=== PATIENT | female | born 1960 | race Caucasian/White ===

== ENCOUNTER 2017-05-14 11:59 | Observation (INO) ==
[2017-05-14] MEDS ORDERED: Nitroglycerin 0.4 MG TAB.SUBL SL PRN (12:35)
--- NOTE | 2017-05-14 12:38 | Emergency Department Note ---
Disposition Clinical Impression: Chest pain Qualifiers: Chest pain type: unspecified Qualified Code(s): R07.9 - Chest pain, unspecified Disposition: Admitted As Inpatient Condition: Undetermined Referrals: NONE,PCP [Primary Care Provider] - Forms: ED Satisfaction Letter Time of Disposition: 14:34 Chest Pain HPI - General Chief Complaint: ED Chest Pain Stated Complaint: chest pain Time Seen by Provider: 05/14/17 12:07 Source: patient Mode of arrival: ambulatory Limitations: no limitations Vital Signs Reviewed: Yes Nursing Notes Reviewed: Yes - History of Present Illness HPI Narrative: 57-year-old female with history of indigestion arrives to [facility] emergency department complaining of epigastric pain radiating into her neck on the left side as well as bilateral upper extremities. The patient has associated nausea. The patient states that she is indigestion but states over the course of the past 24 hours she has felt as though she cannot take a deep breath due to this discomfort in her epigastric radiating into her chest. The patient states this feels different than previous indigestion. The patient states she had a previous cardiac stress test over 10 years ago and was normal. The patient does admit to family history of cardiac disease but denies any history of HI. The patient denies any history of diabetes, hyperlipidemia, hypertension. She denies any smoking. She denies any other complaints at this time. She is not diaphoretic on appearance. Physical exam is unremarkable. Pt complaint: chest pain Onset (ago): day(s) (1) Duration: constant Onset: during rest Pain Location: substernal, epigastric Severity: mild Severity scale (1-10): 2 Quality: aching Pain Radiation: RUE, LUE, neck Improves with: nothing Worsens with: nothing Associated symptoms: Reports: nausea Treatments prior to arrival chest pain: none - Related Data On Oral Contraceptives: No Home Medications Medication Instructions Recorded Confirmed Escitalopram [Lexapro] 20 mg PO DAILY 05/14/17 05/14/17 Allergies Allergy/AdvReac Type Severity Reaction Status Date / Time No Known Allergies Allergy Verified 05/14/17 12:01 All systems ED: reviewed and negative except as stated. Constitutional: Denies: fever, chills, weakness ENT ED: Denies: congestion Cardiovascular: Reports: chest pain. Denies: palpitations, dyspnea on exertion , edema, syncope Respiratory: Denies: cough, dyspnea, wheezes, hemoptysis Gastrointestinal: Reports: nausea. Denies: abdominal pain, vomiting, constipation Genitourinary: Denies: urgency, dysuria Musculoskeletal: Reports: neck pain. Denies: back pain, arthralgia, myalgia Neurological: Denies: headache, weakness, numbness Chest Pain PMH - Past Medical History Medical history: Reports: no medical history Psychiatric history: Reports: anxiety, depression TELECOM SPECIALIST history: Reports: no TELECOM SPECIALIST history - Social History Smoking Status: Never smoker Alcohol use: Reports: rarely Drug use: Reports: none Physical Exam - General Limitations: no limitations General appearance: alert, in no apparent distress - Head Head exam: atraumatic, normocephalic, normal inspection - Eye Eye exam: Present: normal appearance, PERRL, EOMI - ENT ENT exam: normal exam, normal oropharynx, mucous membranes moist - Neck Neck exam: Present: normal inspection, full ROM, trachea midline - Chest Chest inspection: Present: normal inspection, symmetric chest wall rise - Respiratory Respiratory exam: Present: normal lung sounds bilaterally - Cardiovascular Cardiovascular exam: Present: normal rhythm, bradycardia, normal heart sounds - Abdominal Exam Abdominal exam: Present: soft, Non-Tender. Absent: tenderness, distention, guarding, rebound, rigidity - Extremities Exam Extremities exam: Present: normal inspection, full ROM. Absent: tenderness, pedal edema Course Vital Signs Temperature 98.0 F 05/14/17 12:01 Pulse Rate 56 05/14/17 12:01 Respiratory Rate 18 05/14/17 12:01 Blood Pressure 129/69 05/14/17 12:01 O2 Sat by Pulse Oximetry 98 05/14/17 12:01 Temperature 98.0 F 05/14/17 12:01 Pulse Rate 56 05/14/17 12:01 Respiratory Rate 18 05/14/17 12:01 Blood Pressure 129/69 05/14/17 12:01 O2 Sat by Pulse Oximetry 98 05/14/17 12:01 Oxygen Delivery Oxygen Delivery Room Air Chest Pain - MDM Narrative Medical decision making narrative: Patient's workup here in the emergency department demonstrates no acute process. Given the patient's acute change in symptoms over the course of the past 24 hours I am concerned about unstable angina. The patient had a stress test roughly 10 years ago but states that she has not had any workup since then. The patient is low risk otherwise but does have some family history of heart disease without premature HI. I am concerned about the patient's symptoms so we will admit the patient to the hospitalist service for further workup and care and likely trending of the troponin. Accepted by Dr. Patricio. - Lab Data Lab results reviewed: Yes I reviewed the patient's lab results. Result diagrams: 05/14/17 12:35 05/14/17 12:35 Lab Results 05/14/17 05/14/17 05/14/17 Range/Units 12:35 12:35 12:35 WBC 5.8 (4.3-11.1) K/mcL RBC 4.53 (3.82-4.97) M/mcL Hgb 13.7 (11.5-15.4) g/dL Hct 40.3 (35.3-44.9) % MCV 89.0 (83.0-100.0) fL MCH 30.2 (28.0-33.3) pg MCHC 34.0 (31.6-35.5) g/dL RDW 12.4 (11.5-14.5) % Plt Count 266 (140-400) K/mcL MPV 10.2 (9.4-12.4) fL Immature Gran % 0.2 (0-4) % Seg Neutrophils % 48.2 % Lymphocytes % 36.0 % Monocytes % 13.0 % Eosinophils % 1.6 % Basophils % 1.0 % Neutrophils # 2.8 (1.6-8.9) K/mcL Lymphocytes # 2.1 (0.6-4.6) K/mcL Monocytes # 0.8 (0.0-1.3) K/mcL Eosinophils # 0.1 (0.0-0.6) K/mcL Basophils # 0.1 (0.0-0.2) K/mcL Sodium 141 (136-145) mEq/L Potassium 3.7 (3.5-4.5) mEq/L Chloride 108 (98-109) mEq/L Carbon Dioxide 28 (19-29) mEq/L BUN 13 (7-20) mg/dL Creatinine 0.76 (0.57-1.11) mg/dL Est GFR ( Amer) > 60 (> 60) Est GFR (Non-Af Amer) > 60 (> 60) BUN/Creatinine Ratio 17 (6-26) Glucose 98 (70-99) mg/dL Calculated Osmolality 292 (280-300) Calcium 9.2 (8.6-10.8) mg/dL Total Bilirubin 0.4 (0.2-1.2) mg/dL AST 20 (5-34) Units/L ALT 23 (0-55) Units/L Alkaline Phosphatase 73 (38-126) Units/L Troponin I 0.00 (0-0.03) ng/mL Serum Total Protein 6.7 (6.0-8.3) g/dL Albumin 3.9 (3.5-5.0) g/dL Globulin 2.8 (2.4-3.5) g/dL Albumin/Globulin Ratio 1.4 (1.1-2.2) Lipase 16 (8-78) Units/L - Radiology Data Radiology results reviewed: Yes I reviewed the patient's radiology results. - EKG Data EKG attestation: Yes I reviewed and interpreted this EKG. EKG results narrative: Heart rate [address] interval 138 ms. QTC 33 ms. Sinus bradycardia. No ST elevation or ST depression noted. No previous EKG on record. Attestation Statement - Attestation Attestation: I examined this patient and my medical decision-making was reviewed with the Resident Physician. I agree with the documented findings, disposition and treatment plan as described except to the extent set forth below. Patient seen now feeling well. She has been having some intermittent episodes of epigastric pain. No cardiac history. Had a negative stress test about 10 years ago. Patient is unsure of her father's family history. Mom has heart problems but is unsure what they are. On examination she is in no distress. Clear lungs and a heart regular rate and rhythm. Plan. Cardiac workup is unremarkable except for some nonspecific ST changes on her EKG. Troponin is negative. Patient will be admitted for observation and further cardiac workup.
[2017-05-14 12:46] LABS: Basophils # 0.1 K/mcL (0.0-0.2); Eosinophils # 0.1 K/mcL (0.0-0.6); Eosinophils % 1.6 %; Hematocrit 40.3 % (35.3-44.9); Hemoglobin 13.7 g/dL (11.5-15.4); Immature Granulocytes % 0.2 % (0-4); Lymphocytes # 2.1 K/mcL (0.6-4.6); Mean Corpuscular Hemoglobin 30.2 pg (28.0-33.3); Mean Platelet Volume 10.2 fL (9.4-12.4); Monocytes # 0.8 K/mcL (0.0-1.3); Neutrophils # 2.8 K/mcL (1.6-8.9); Platelet Count 266 K/mcL (140-400); Red Blood Count 4.53 M/mcL (3.82-4.97); Red Cell Distribution Width 12.4 % (11.5-14.5); Segmented Neutrophils % 48.2 %
[2017-05-14 13:01] LABS: Alanine Aminotransferase 23 Units/L (0-55); Albumin 3.9 g/dL (3.5-5.0); Albumin/Globulin Ratio 1.4 (1.1-2.2); Alkaline Phosphatase 73 Units/L (38-126); Aspartate Amino Transferase 20 Units/L (5-34); BUN/Creatinine Ratio 17 (6-26); Bilirubin,Total 0.4 mg/dL (0.2-1.2); Blood Urea Nitrogen 13 mg/dL (7-20); Calcium 9.2 mg/dL (8.6-10.8); Carbon Dioxide 28 mEq/L (19-29); Chloride 108 mEq/L (98-109); Globulin 2.8 g/dL (2.4-3.5); Glucose 98 mg/dL (70-99); Lipase 16 Units/L (8-78); Osmolality,Calculated 292 (280-300); Potassium 3.7 mEq/L (3.5-4.5); Sodium 141 mEq/L (136-145); Total Protein 6.7 g/dL (6.0-8.3); eGFR For African Americans > 60 (> 60); eGFR For Non-African Americans > 60 (> 60)
[2017-05-14] MEDS ORDERED: Aspirin 325 MG TABLET PO ONE (13:42)
--- NOTE | 2017-05-14 16:06 | Internal Med History&Physical ---
Date of Encounter: 05/14/17 Time of Encounter: 16:02 Assessment and Plan (1) Chest pain Current visit: Yes Status: Acute 57/female Background history of anxiety. High-profile stressful job. Admitted with ongoing epigastric pain for more than a month. Has chest pressure and chest symptoms for last 24 hours. Plan: Admitted as an observation. Aspirin, statin, beta amanda. Echocardiogram. Troponin trending. Lipid panel tomorrow. Repeat labs tomorrow. If 3 troponins are normal and echocardiogram is negative then consider stress test. If stress test is abnormal: Please Call cardiology. A stress test is normal: Please Call gastroenterology for possible EGD. This can be done as outpatient too. Qualifiers: Chest pain type: unspecified Qualified Code(s): R07.9 - Chest pain, unspecified (2) Epigastric pain Current visit: Yes Status: Acute Epigastric pain is likely secondary to acid peptic disease. We will follow the plan as mentioned above. (3) DVT prophylaxis Current visit: Yes Status: Acute Heparin Medical decision making: This patient has a [id number] risk of worsening in spite of being on appropriate medication due to the underlying multiple complex comorbid issues Internal Medicine - H&P: HPI Chief complaint: Chest pressure Admitted From: Emergency Dept Plans for Post Hospital Care: Home History of present illness: PCP: No PCP Brief past medical history: Minor anxiety in the past. History of present illness: Patient is experiencing more than 1 month off and on epigastric indigestion kind of a feeling. In last 1 week the feeling was getting persistently worse. In last 24 hours along with the epigastric indigestion patient started feeling chest heaviness, chest pressure which was radiating from her epigastric region to all the way left precordial region to the left shoulder and left arm. And was experiencing lot of fatigue and tiredness in last 1 month. 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 Patient has a lot of concern regarding the symptoms and also keen to know about this new development she realized in last 1 month. Patient also claims that she realized that her eating habits has changed and she has started excessively eating too much as compared to the past. Patient was very concerned of this new development. Patient did not have shortness of breath, nausea, vomiting, abdominal pain, diarrhea or constipation. Workup in the emergency room: Patient was evaluated in the emergency room. Basic labs were drawn. In view of the chest pressure it was decided to admit her to rule out acute coronary syndrome. Reason for admission: Chest pain to rule out ACS. Heart score 1 Family history noncontributory Past Med Surg Social Fam HX - Past Medical History Medical history: no medical history Psychiatric history: anxiety, depression - Social History Smoking Status: Never smoker Smokeless Tobacco Status: No Alcohol use: rarely Drug use: none - Family History Mother Hx Family Cardiac Disorders: Yes Internal Medicine - H&P: Meds Escitalopram [Lexapro] 20 mg PO DAILY 05/14/17 [History] 3 Allergy/AdvReac Type Severity Reaction Status Date / Time No Known Allergies Allergy Verified 05/14/17 12:01 All Systems PM: A 10-system review of systems was performed and is negative for pertinent findings except as documented above in the HPI. - Constitutional Constitutional: no chills, no fever(s), no night sweats - EENT Eyes: no change in vision, no discharge, no pain, no photophobia Ears: no ear discharge, no ear pain, no tinnitus Nose, mouth and throat: dysphagia, no nasal discharge, no neck pain, no sore throat - Cardiovascular Cardiovascular ROS IM: chest pain, diaphoresis, lightheadedness, no dyspnea, no palpitations, no syncope - Respiratory Respiratory: no cough, no dyspnea, no wheezing, no excessive phlegm production - Gastrointestinal Gastrointestinal: no abdominal pain, no diarrhea, no hematemesis, no hematochezia, no melena, no nausea, no vomiting - Genitourinary Genitourinary: no change in urinary stream, no dysuria, no flank pain, no hematuria - Musculoskeletal Musculoskeletal ROS IM: no numbness, no tingling - Integumentary Integumentary IM: no rash, no unusual bruising - Neurological Neurological ROS: no confusion, no convulsions, no focal weakness, no numbness, no tingling, no tremor(s) - Hematologic/Lymphatic Hematologic/Lymphatic: no easy bruising - Constitutional Vitals: Temp Pulse Resp BP Pulse Ox 98.0 F 56 18 129/69 98 05/14/17 12:01 05/14/17 12:01 05/14/17 12:01 05/14/17 12:01 05/14/17 12:01 General appearance: Present: A&O X 3, pleasant, no acute distress, answers questions appropriately - Head Head exam: Present: atraumatic, normocephalic - Eye Eye exam: Present: PERRL, conjuntiva pink, sclera anicteric Pupils: Present: PERRL - Neck Neck exam general surgery: Present: supple, trachea midline. Absent: lymphadenopathy - Respiratory Respiratory exam: Present: CTAB. Absent: accessory muscle use, rales, rhonchi, wheezes - Cardiovascular Cardiovascular exam: Present: RRR, +S1, +S2. Absent: diastolic murmur, gallop, rubs, systolic murmur - GI/Abdominal GI/Abdominal exam: Present: normal bowel sounds, soft, no peritoneal signs. Absent: distended, tenderness - Extremities Exam Extremities exam: Present: warm, radial pulses palpable and symmetrical. Absent : calf tenderness, cyanotic, pedal edema - Neurological Exam Neurological exam: Present: CN II-XII intact, oriented X3, no focal deficits. Absent: pronater drift, facial droop, speech deficit - Skin Skin exam: Present: dry, intact Internal Med - H&P Results - Labs CBC & Chem 7: 05/14/17 12:35 05/14/17 12:35
[2017-05-14] MEDS ORDERED: Naloxone 0.4 MG/ML INJ IVP PRN (16:11)
[2017-05-14] MEDS ORDERED: Mag Hydrox/Al Hydrox/Simeth 30 ML UDC PO PRN (16:11)
[2017-05-14] MEDS ORDERED: Acetaminophen 325 MG TABLET PO PRN (16:11)
[2017-05-14] MEDS: *HR* Heparin 5,000 UNIT/ML VIAL SQ SCH (18:30)
[2017-05-14] MEDS: Aspirin Enteric Coated 81 MG Tablet PO SCH (18:30)
--- NOTE | 2017-05-14 18:59 | Electrocardiograph Report ---
[address] [place], [place] [address] Test Date: 2017-05-14 Pat Name: Seda Spain Department: 103 Room: [facility] Gender: F License Issuer: : [id number] Requested By: Hari Albert Order Number: [id number] Reading MD: Venancio Matos MD Measurements Intervals [place] Rate: 54 P: 49 RI: 138 QRS: 37 QRSD: 92 T: 15 QT: 397 QTc: 383 Interpretive Statements SINUS BRADYCARDIA LEFT ATRIAL ENLARGEMENT Electronically Signed On 05-14-2017 18:57:52 EST by Venancio Matos MD
[2017-05-15 05:10] LABS: Basophils % 0.9 %; Eosinophils # 0.1 K/mcL (0.0-0.6); Eosinophils % 2.7 %; Hematocrit 41.6 % (35.3-44.9); Hemoglobin 13.7 g/dL (11.5-15.4); Immature Granulocytes % 0.5 % (0-4); Mean Corpuscular HGB Conc 32.9 g/dL (31.6-35.5); Mean Corpuscular Hemoglobin 29.6 pg (28.0-33.3); Mean Corpuscular Volume 89.8 fL (83.0-100.0); Mean Platelet Volume 10.2 fL (9.4-12.4); Monocytes # 0.6 K/mcL (0.0-1.3); Monocytes % 13.5 %; Neutrophils # 1.6 K/mcL (1.6-8.9); Platelet Count 234 K/mcL (140-400); Red Blood Count 4.63 M/mcL (3.82-4.97); Red Cell Distribution Width 12.6 % (11.5-14.5); Segmented Neutrophils % 37.4 %
[2017-05-15 05:11] LABS: Prothrombin Time 10.9 Seconds (9.4-12.1)
[2017-05-15 05:14] LABS: Activated Partial Thrombo Time 29.9 Seconds (26.0-36.0)
[2017-05-15 05:22] LABS: Alanine Aminotransferase 22 Units/L (0-55); Albumin 3.5 g/dL (3.5-5.0); Albumin/Globulin Ratio 1.3 (1.1-2.2); Alkaline Phosphatase 68 Units/L (38-126); Aspartate Amino Transferase 21 Units/L (5-34); BUN/Creatinine Ratio 18 (6-26); Bilirubin,Total 0.5 mg/dL (0.2-1.2); Blood Urea Nitrogen 15 mg/dL (7-20); Carbon Dioxide 27 mEq/L (19-29); Chloride 108 mEq/L (98-109); Chol/HDL Ratio 3.7 (0-4.9); Cholesterol 199 mg/dL (< 200); Globulin 2.7 g/dL (2.4-3.5); Glucose 87 mg/dL (70-99); HDL Cholesterol 54 mg/dL (40-59); LDL Cholesterol,Calculated 127 mg/dL (0-99); Magnesium 2.3 mg/dL (1.6-2.6); Osmolality,Calculated 294 (280-300); Phosphorous 3.2 mg/dL (2.3-4.7); Potassium 4.5 mEq/L (3.5-4.5); Sodium 142 mEq/L (136-145); Total Protein 6.2 g/dL (6.0-8.3); Triglycerides 88 mg/dL (< 150); eGFR For African Americans > 60 (> 60); eGFR For Non-African Americans > 60 (> 60)
[2017-05-15] MEDS: *HR* Heparin 5,000 UNIT/ML VIAL SQ SCH (07:22)
[2017-05-15] MEDS ORDERED: Regadenoson 0.4 MG/5 ML SYRINGE IVP ONE (08:47)
[2017-05-15] MEDS: Aspirin Enteric Coated 81 MG Tablet PO SCH (10:40)
[2017-05-15 12:45] VITALS: BP 104/72
--- NOTE | 2017-05-15 15:13 | Discharge Summary ---
Date of Encounter: 05/15/17 Time of Encounter: 15:00 - Discharge Diagnosis (1) Chest pain Priority: Primary Status: Acute Comments: Atypical chest pain - ACS ruled out - symptoms probably due to gastritis or peptic disease Advised Aspirin and low-dose statin - patient states she will follow-up with PCP before starting the medications Advised to take Prilosec for probable gastritis EKG - sinus bradycardia with no acute ST-T changes Troponin - negative 4 Lipid panel - reviewed Chest x-ray - no acute cardiopulmonary process Stress test - Gated EF 58%, negative for ischemia or infarct, LV is not dilated Return if symptoms worsen, advised to follow up with primary care physician Qualifiers: Chest pain type: unspecified Qualified Code(s): R07.9 - Chest pain, unspecified (2) Anxiety Priority: Primary Status: Chronic Comments: H/O Anxiety with depression - stable Continue home dose of Lexapro (3) Epigastric pain Priority: Primary Status: Acute Comments: Epigastric pain likely due to gastritis or peptic disease Advised Prilosec - Discharge Medications Home Medications: Escitalopram [Lexapro] 20 mg PO DAILY 05/14/17 [History] Allergies/Adverse Reactions: 3 Allergy/AdvReac Type Severity Reaction Status Date / Time No Known Allergies Allergy Verified 05/14/17 12:01 Procedures/tests Complete & Pending: Procedures Performed prior 72 hours Category Date Time Status NM song perf SPECT multi [NM] Routine Exams 05/15/17 07:42 Taken EV echocardiogram Routine Y 05/15/17 16:13 Completed SP pharm nuclear stress Routine Y 05/15/17 07:42 Completed Date of admission: 05/14/17 14:48 Primary care physician: Hari Sheriff MD Anticipated date of discharge: 05/15/17 - Patient Status Disposition: Home, Self-Care Condition: Good Functional capacity at discharge: independent ambulation Overall status at discharge: patient is back to baseline - Discharge Instructions Follow Up With: Hari Sheriff MD [Primary Care Provider] - Additional Instructions: IF SYMPTOMS RETURN PLEASE GO TO ER. FOLLOW UP WITH PRIMARY DOCTOR IN 1 WEEK - Diet and Activity Activity: increase activity as tolerated, resume usual activities as tolerated Diet: advance to your usual diet Hospital course: Ms. Spain is a 57 year old female with past medical history of anxiety with depression. She presented to the ED with complaints of epigastric pain and chest pressure. This is radiating from epigastric region to the precordial region. She complains of fatigue and generalized weakness over the past month. She stated that her job is extremely stressful. Patient is admitted for chest pain to rule out ACS. Troponin is negative 4. EKG does not show any acute ST-T changes. Stress test was done and is negative for ischemia or infarct. Gated EF is 50% of the LV is not dilated. Echocardiogram report is pending. Patient was recommended to start aspirin and low-dose statin. Her LDL is elevated. Patient states she does not want to take these 2 medications at this time. States she will follow-up with her primary care doctor and then decide about the medications. Patient does complain of epigastric pain which improves with Prilosec. She has been advised to continue this at home. Patient has been explained about her condition and plan of care. She understood and agreed. No unanswered questions. Patient is tolerating oral diet well and ambulating well. No acute events or complications during her stay in the hospital. Patient is being discharged in stable condition. Advised to return if symptoms worsen. Follow up with primary care physician. - Time Spent with Patient Total time spent providing and/or coordinating discharge services: Less than 30 minutes - Constitutional Vitals: Temp Pulse Resp BP Pulse Ox 98.0 F 67 16 104/72 98 05/15/17 12:30 05/15/17 12:30 05/15/17 12:30 05/15/17 12:30 05/15/17 12:30 General appearance: Present: cooperative, A&O X 3, pleasant, no acute distress, answers questions appropriately - Head Head exam: Present: atraumatic - Eye Eye exam: Present: EOMI - ENT ENT exam: Present: mucous membranes moist - Respiratory Respiratory exam: Present: CTAB. Absent: accessory muscle use, chest wall tenderness, rales, rhonchi, wheezes, tachypnea - Cardiovascular Cardiovascular exam: Present: RRR, +S1, +S2 - GI/Abdominal GI/Abdominal exam: Present: soft. Absent: distended, firm, guarding, tenderness - Extremities Exam Extremities exam: Present: radial pulses palpable and symmetrical. Absent: calf tenderness, cyanotic, pedal edema - Neurological Exam Neurological exam: Present: alert, oriented X3, no focal deficits. Absent: facial droop, speech deficit
== END 2017-05-15 16:39 | disposition home or self-care (01) ==
LOC: EMEROO 11:59 → 3NENU 11:59
PROVIDERS: ADMIT Internal Medicine; ATTEND Student in an Organized Health Care Education/Training Program